=== PATIENT | male | born 1965 | race Hispanic/Latino ===

== ENCOUNTER 2017-02-25 09:23 | Inpatient (IN) | payer OTHER ==
[~2017-02-25] VITALS: Ht 172.7 cm; Wt 61.4 kg
[~2017-02-25 09:23] MED LIST: AMLODIPINE5 MG PO; GLIPIZIDE ER5 MG PO; GLYBURIDE5 M1 PO; LIBRIUM25 M1 PO; LISINOPRIL10 MG PO; METFORMIN HCL1000 MG PO; METFORMIN1000 MG PO; METFORMIN500 M2 PO; METFORMIN850 MG PO; ZOFRAN ODT4 MG SL
[2017-02-25 10:35] LABS: HEMATOCRIT 33.9 % (39.0-50.0); HEMOGLOBIN 12.3 g/dl (14.0-18.0); IMMATURE GRANULOCYTES 0.6 % (0.0-1.0); MEAN CORPUSCULAR HGB 34.5 pG CALC (26.0-32.0); MEAN CORPUSCULAR HGB CONC 36.3 g/L CALC (32.0-36.0); NEUT# 13.56 thou/uL (1.82-7.42); RED BLOOD COUNT 3.57 mill/uL (4.70-6.10); RED CELL DISTRI WIDTH 11.7 % (11.5-15.5)
[2017-02-25 10:50] LABS: ALBUMIN 3.8 g/dL (3.2-5.0); ALKALINE PHOSPHATASE 119 u/l (38-126); ANION GAP 25 (6-22 (CALC)); BUN 19 mg/dL (9-20); BUN/CREATININE RATIO 19 (12-20 (CALC)); CARBON DIOXIDE 21 mmol/l (22-30); CHLORIDE 90 mmol/l (95-108); GFR > 60 ML/MIN (>=60 (CALC)); GFR FOR AFR.AMER. > 60 ML/MIN (>=60 (CALC)); GLUCOSE 394 mg/dL (75-110); POTASSIUM 4.2 mmol/l (3.5-5.1); SGOT/AST 32 u/l (17-59); SGPT/ALT 42 u/l (21-72); SODIUM 131 mmol/l (137-146); TOTAL PROTEIN 6.9 g/dL (6.3-8.2)
[2017-02-25 13:48] LABS: URINE BILIRUBIN - DIPSTICK NEGATIVE (NEGATIVE); URINE BLOOD DIPSTICK MODERATE (NEGATIVE); URINE CLARITY SLIGHT CLOUDY; URINE COLOR YELLOW; URINE GLUCOSE - DIPSTICK >=1000 mg/dL (NEGATIVE); URINE KETONE >=80 mg/dL (NEGATIVE); URINE LEUK ESTERASE NEGATIVE (NEGATIVE); URINE NITRITE - DIPSTICK NEGATIVE (Negative); URINE PH 5.5 (4.5-8.0); URINE PROTEIN - DIPSTICK 30 mg/dL (NEG-TRACE); URINE SPECIFIC GRAVITY 1.015
[2017-02-25 13:49] LABS: URINE EPITHELIAL CELLS FEW EPI/hpf (0-FEW); URINE MUCUS MODERATE hpf (NONE-FEW)
[2017-02-25 13:54] VITALS: BP 167/85
[2017-02-25 15:34] VITALS: BP 151/81
[2017-02-25 16:12] LABS: CHOLESTEROL HDL RATIO 4.7 (<4.4 (CALC))
[2017-02-25 19:20] VITALS: BP 163/97
[2017-02-26 04:00] VITALS: BP 131/70
[2017-02-26 06:09] LABS: HEMATOCRIT 31.2 % (39.0-50.0); HEMOGLOBIN 11.1 g/dl (14.0-18.0); IMMATURE GRANULOCYTES 0.9 % (0.0-1.0); MEAN CELL VOLUME 95.1 fL CALC (80.0-100.0); MEAN CORPUSCULAR HGB 33.8 pG CALC (26.0-32.0); MEAN CORPUSCULAR HGB CONC 35.6 g/L CALC (32.0-36.0); NEUT# 11.84 thou/uL (1.82-7.42); RED BLOOD COUNT 3.28 mill/uL (4.70-6.10); RED CELL DISTRI WIDTH 11.5 % (11.5-15.5)
[2017-02-26 06:23] LABS: ANION GAP 11 (6-22 (CALC)); BUN 16 mg/dL (9-20); BUN/CREATININE RATIO 20 (12-20 (CALC)); CALCIUM 8.2 mg/dL (8.4-10.2); CARBON DIOXIDE 28 mmol/l (22-30); CHLORIDE 98 mmol/l (95-108); CREATININE 0.8 mg/dL (0.7-1.3); GFR > 60 ML/MIN (>=60 (CALC)); GFR FOR AFR.AMER. > 60 ML/MIN (>=60 (CALC)); GLUCOSE 82 mg/dL (75-110); POTASSIUM 3.4 mmol/l (3.5-5.1); SODIUM 135 mmol/l (137-146)
[2017-02-26 08:15] VITALS: BP 148/79
[2017-02-26 16:00] VITALS: BP 159/84
[2017-02-26 18:50] VITALS: BP 139/79
== END 2017-02-26 22:20 | disposition short-term general hospital (02) | DRG 872 ==
LOC: ED 09:23 → ED-I 11:50 → ED 12:15 → MS2 12:16
PROVIDERS: Emergency Medicine; Nurse Practitioner Family; ADMIT Internal Medicine; ATTEND Internal Medicine
PROC: 0H9FXZZ Drainage of Right Hand Skin, External Approach (ICD-10-PCS; principal; 2017-02-25)
DX: A41.9 Sepsis, unspecified organism (principal); E11.628 Type 2 diabetes mellitus with other skin complications; L03.113 Cellulitis of right upper limb; L02.511 Cutaneous abscess of right hand; E87.1 Hypo-osmolality and hyponatremia; E11.65 Type 2 diabetes mellitus with hyperglycemia; I10 Essential (primary) hypertension; Z79.84 Long term (current) use of oral hypoglycemic drugs; Z91.14 Patient's other noncompliance with medication regimen
CPT/HCPCS: J1650; J3370

== ENCOUNTER 2017-03-19 12:12 | Emergency (ER) | payer SELFPAY ==
[~2017-03-19] VITALS: Ht 162.6 cm; Wt 61.0 kg
[2017-03-19 14:13] LABS: HEMATOCRIT 33.1 % (39.0-50.0); IMMATURE GRANULOCYTES 0.1 % (0.0-1.0); MEAN CELL VOLUME 91.9 fL CALC (80.0-100.0); MEAN CORPUSCULAR HGB 33.3 pG CALC (26.0-32.0); MEAN CORPUSCULAR HGB CONC 36.3 g/L CALC (32.0-36.0); NEUT# 4.51 thou/uL (1.82-7.42); RED BLOOD COUNT 3.6 mill/uL (4.70-6.10); RED CELL DISTRI WIDTH 11.7 % (11.5-15.5)
[2017-03-19 14:15] LABS: URINE BILIRUBIN - DIPSTICK NEGATIVE (NEGATIVE); URINE BLOOD DIPSTICK NEGATIVE (NEGATIVE); URINE CLARITY CLEAR; URINE COLOR YELLOW; URINE GLUCOSE - DIPSTICK >=1000 mg/dL (NEGATIVE); URINE KETONE NEGATIVE (NEGATIVE); URINE LEUK ESTERASE NEGATIVE (NEGATIVE); URINE NITRITE - DIPSTICK NEGATIVE (Negative); URINE PROTEIN - DIPSTICK NEGATIVE (NEG-TRACE); URINE UROBILINOGEN - DIPSTICK 0.2 E.U./dL (0.2)
[2017-03-19 14:51] LABS: ALKALINE PHOSPHATASE 68 u/l (38-126); ANION GAP 15 (6-22 (CALC)); BILIRUBIN, TOTAL 0.8 mg/dL (0.0-1.4); BUN 28 mg/dL (9-20); BUN/CREATININE RATIO 23 (12-20 (CALC)); CALCIUM 9.2 mg/dL (8.4-10.2); CARBON DIOXIDE 24 mmol/l (22-30); CHLORIDE 101 mmol/l (95-108); CREATININE 1.2 mg/dL (0.7-1.3); GFR > 60 ML/MIN (>=60 (CALC)); GFR FOR AFR.AMER. > 60 ML/MIN (>=60 (CALC)); POTASSIUM 4.7 mmol/l (3.5-5.1); SGOT/AST 20 u/l (17-59); SGPT/ALT 40 u/l (21-72); SODIUM 135 mmol/l (137-146); TOTAL PROTEIN 7.6 g/dL (6.3-8.2)
[2017-03-19 14:55] LABS: GLUCOSE 452 mg/dL (75-110)
[2017-03-19] MEDS ORDERED: ABX IV (15:25)
[2017-03-19] MEDS ORDERED: GLUCOTROL XL5 MG PO (16:30)
[2017-03-19] MEDS ORDERED: METFORMIN1000 MG PO (16:30)
[2017-03-19 16:50] VITALS: BP 102/69
[2017-03-19 17:22] LABS: MYOGLOBIN 27 ng/mL (0 - 121)
== END 2017-03-19 16:54 | disposition home or self-care (01) | DRG 639 ==
LOC: ED 12:12 → ED-I 14:55 → ED 16:54
PROVIDERS: Emergency Medicine
DX: E11.65 Type 2 diabetes mellitus with hyperglycemia (principal); I10 Essential (primary) hypertension; Z91.11 Patient's noncompliance with dietary regimen; Z91.14 Patient's other noncompliance with medication regimen; Z79.84 Long term (current) use of oral hypoglycemic drugs